=== PATIENT | male | born 2000 | race Caucasian/White ===

== ENCOUNTER 2019-04-21 22:25 | Emergency (ER) | payer OTHER, MEDICAID ==
[~2019-04-21] VITALS: Ht 193 cm; Wt 140.2 kg
[~2019-04-21 22:25] MED LIST: CEPH500C2 PO; NO MEDS
--- NOTE | 2019-04-21 23:39 | NUR ---
BIB MOTHER FOR C/O ABD PAIN (RUQ), NAUSEA, GREEN STOOL, - DIARRHEA, - DYSURIA, PT ON FLAGYL WHICH WAS PRESCRIBED BY HIS PCP FOR POSSIBLE INFX. FAMILY HX OF CHOLECYSTECTOMY IN MOM.
[2019-04-21] MEDS ORDERED: ONDANSETRON HCL/PF 4 MG/2 ML VIAL ONE (23:53)
[2019-04-21] MEDS ORDERED: MORPHINE SULFATE INJ 4 MG/ML DISP.SYRIN ONE (23:53)
[2019-04-22] MEDS ORDERED: MORPHINE SULFATE INJ 2 MG/ML DISP.SYRIN IV ONE
[2019-04-22] MEDS ORDERED: IV NS 0.9% 1,000 ML BAG IV ONE
[2019-04-22] MEDS ORDERED: ONDANSETRON HCL/PF 4 MG/2 ML VIAL IVP ONE
[2019-04-22 00:02] LABS: BASOPHILS % (AUTO) 0.5 % (0.0-2.0); EOSINOPHILS % (AUTO) 2.2 % (0.0-6.0); HEMATOCRIT 45 % (39-51); HEMOGLOBIN 15.1 g/dL (13.5-17.5); LYMPHOCYTES # (AUTO) 3.2 /CMM (0.8-4.8); LYMPHOCYTES % (AUTO) 38.5 % (20.0-44.0); MEAN CORPUSCULAR HGB CONC 33 g/dl (31.0-36.0); MEAN CORPUSCULAR VOLUME 82 fL (80-96); MONOCYTES # (AUTO) 0.6 /CMM (0.1-1.30); NEUTROPHILS # (AUTO) 4.4 /CMM (1.8-8.9); NEUTROPHILS % (AUTO) 51.8 % (43.0-81.0); PLATELET COUNT (AUTO) 314 /CMM (150-450); RED BLOOD CELL COUNT(AUTO) 5.57 MIL/uL (4.5-6.0); WHITE BLOOD COUNT (AUTO) 8.4 K/uL (4.3-11.0)
[2019-04-22 00:13] LABS: CALCIUM, SERUM 8.7 mg/dL (8.5-10.1); CREATININE 0.8 mg/dL (0.6-1.3); POTASSIUM 3.9 mmol/L (3.5-5.1)
[2019-04-22 00:26] LABS: ALBUMIN 3.5 g/dL (3.4-5.0); BILIRUBIN,DIRECT 0.1 mg/dL (0.0-0.2); BILIRUBIN,TOTAL 0.3 mg/dL (0.2-1.0); TOTAL PROTEIN, SERUM 7.2 g/dL (6.4-8.2)
[2019-04-22 00:44] LABS: APPEARANCE,URINE Clear (CLEAR); BILIRUBIN,URINE Negative (NEGATIVE); BLOOD, URINE Trace-intact Ery/uL (NEGATIVE); COLOR,URINE Yellow (YELLOW); KETONES,URINE Negative (NEGATIVE); LEUKOCYTE ESTERASE ,URINE Negative (NEGATIVE); NITRITE, URINE Negative (NEGATIVE); PROTEIN,URINE Negative (NEGATIVE); UGLUCOSE Negative (NEGATIVE); UROBILINOGEN,URINE 0.2 EU/dL (0.2)
[2019-04-22 01:06] LABS: BACTERIA,URINE Rare /HPF (None Seen); SQUAMOUS EPITHELIAL CELL,UR Rare /HPF (None Seen); WBC,URINE 0-2 /HPF (0-3)
--- NOTE | 2019-04-22 01:37 | NUR ---
IV removed. Catheter intact and site benign. Pressure and 4x4 applied to site. No bleeding noted. Patient discharged to home in stable condition. Rx and Written and verbal after care instructions given.Patient verbalizes understanding of instruction. MOTHER WILL DRIVE HIM BACK HOME
[2019-04-22 01:38] VITALS: BP 141/72
== END 2019-04-22 01:39 | disposition home or self-care (01) ==
LOC: ER 22:35
DX: R10.11 Right upper quadrant pain (principal); R11.0 Nausea
CPT/HCPCS: 36415; 80048; 80076; 81001; 83690; 85025; 87086; 96374; 96375; 99283; J2270; J2405; J7030; 81000-TC

== ENCOUNTER 2020-06-02 23:02 | Emergency (ER) | payer MEDICAID, OTHER ==
[~2020-06-02] VITALS: Ht 193 cm; Wt 140.2 kg
[2020-06-02 23:41] LABS: BASOPHILS # (AUTO) 0.1 /CMM (0.0-0.2); BASOPHILS % (AUTO) 0.5 % (0.0-2.0); EOSINOPHILS % (AUTO) 1.4 % (0.0-6.0); HEMATOCRIT 46 % (39-51); HEMOGLOBIN 14.9 g/dL (13.5-17.5); LYMPHOCYTES # (AUTO) 2.9 /CMM (0.8-4.8); LYMPHOCYTES % (AUTO) 23.8 % (20.0-44.0); MEAN CORPUSCULAR HGB CONC 33 g/dl (31.0-36.0); MEAN CORPUSCULAR VOLUME 84 fL (80-96); MONOCYTES # (AUTO) 0.7 /CMM (0.1-1.30); MONOCYTES % (AUTO) 6.1 % (2.0-12.0); NEUTROPHILS # (AUTO) 8.3 /CMM (1.8-8.9); NEUTROPHILS % (AUTO) 68.2 % (43.0-81.0); PLATELET COUNT (AUTO) 325 /CMM (150-450); RED BLOOD CELL COUNT(AUTO) 5.42 MIL/uL (4.5-6.0); WHITE BLOOD COUNT (AUTO) 12.1 K/uL (4.3-11.0)
[2020-06-02 23:41] LABS: APPEARANCE,URINE CLEAR (CLEAR); BILIRUBIN,URINE NEGATIVE (NEGATIVE); BLOOD, URINE NEGATIVE Ery/uL (NEGATIVE); COLOR,URINE YELLOW (YELLOW); KETONES,URINE NEGATIVE (NEGATIVE); LEUKOCYTE ESTERASE ,URINE NEGATIVE (NEGATIVE); NITRITE, URINE NEGATIVE (NEGATIVE); PROTEIN,URINE 30 mg/dl (NEGATIVE); UGLUCOSE NEGATIVE (NEGATIVE); UROBILINOGEN,URINE 0.2 EU/dL (0.2)
--- NOTE | 2020-06-02 23:49 | NUR ---
PT AAOX4. AMBULATORY WITH STEADY GAIT. BIBSELF C/O LOWER MID ABD PAIN X 2D, SHARP PAIN. PREVIOUSLY CONSTIPTED, TOOK FIBER. PLACED IN BED 3 ON MONITOR AND PULSE OX. VSS.
[2020-06-02 23:55] LABS: ALBUMIN 3.4 g/dL (3.4-5.0); BILIRUBIN,DIRECT 0.1 mg/dL (0.0-0.2); BILIRUBIN,TOTAL 0.2 mg/dL (0.2-1.0); CALCIUM, SERUM 8.8 mg/dL (8.5-10.1); CREATININE 0.9 mg/dL (0.6-1.3); POTASSIUM 4.7 mmol/L (3.5-5.1); TOTAL PROTEIN, SERUM 7.4 g/dL (6.4-8.2)
[2020-06-03 00:05] LABS: BACTERIA,URINE Few /HPF (None Seen); MUCUS,URINE Few /LPF (None Seen); RBC,URINE 0-2 /HPF (0-2); SPERM,URINE Rare /HPF (None Seen); SQUAMOUS EPITHELIAL CELL,UR Rare /HPF (None Seen); WBC,URINE 0-2 /HPF (0-3)
--- NOTE | 2020-06-03 01:12 | NUR ---
US AT BEDSIDE
--- NOTE | 2020-06-03 01:37 | NUR ---
Patient discharged to home in stable condition. Written and verbal after care instructions given. Patient verbalizes understanding of instruction.
[2020-06-03 02:53] VITALS: BP 131/71
== END 2020-06-03 01:58 | disposition home or self-care (01) ==
LOC: ER 23:02
DX: N30.90 Cystitis, unspecified without hematuria (principal); J18.9 Pneumonia, unspecified organism; E66.01 Morbid (severe) obesity due to excess calories; Z68.37 Body mass index [BMI] 37.0-37.9, adult; Z79.899 Other long term (current) drug therapy
CPT/HCPCS: 36415; 71045-TC; 76856-TC; 76870-TC; 80048-TC; 80076-TC; 81000-TC; 83690-TC; 85025-TC

== ENCOUNTER 2020-07-23 03:35 | Emergency (ER) | payer MEDICAID ==
[~2020-07-23] VITALS: Ht 193 cm; Wt 133.8 kg
[2020-07-23 03:35] VITALS: BP 147/91
[2020-07-23] MEDS ORDERED: ONDANSETRON 4 MG TAB.RAPDIS ONE (04:11)
[2020-07-23] MEDS ORDERED: CYCLOBENZAPRINE 10 MG TABLET ONE (04:11)
[2020-07-23] MEDS ORDERED: HYDROCODONE/APAP 10/325MG TABLET ONE (04:11)
--- NOTE | 2020-07-23 04:20 | NUR ---
PICKED UP BY MOTHER.
[2020-07-23] MEDS ORDERED: HYDROCODONE/APAP 10/325MG TABLET PO ONE (04:30)
[2020-07-23] MEDS ORDERED: ONDANSETRON 4 MG TAB.RAPDIS SL ONE (04:30)
[2020-07-23] MEDS ORDERED: CYCLOBENZAPRINE 10 MG TABLET PO ONE (04:30)
== END 2020-07-23 04:20 | disposition home or self-care (01) ==
LOC: ER 03:38
DX: M54.5 Low back pain (principal)
CPT/HCPCS: 99284; Q0162

== ENCOUNTER 2021-02-02 18:31 | Emergency (ER) | payer MEDICAID ==
[~2021-02-02] VITALS: Ht 193 cm; Wt 95.3 kg
--- NOTE | 2021-02-02 18:50 | NUR ---
THE PATIENT BIBS FOR C/O ON & OFF ABDOMINAL CRAMPING AND BLOOD IN STOOL X 1 YEAR. RATES PAIN 5/10. ABDOMEN SOFT AND NON-DISTENDED. RESPIRATION REGULAR AND UNLABORED. WILL CONTINUE TO MONITOR THE PATIENT.
[2021-02-02 18:55] VITALS: BP 164/109
[2021-02-02] MEDS ORDERED: SENN-18 PO (19:12)
[2021-02-02] MEDS ORDERED: HYDR25SU33 RC (19:12)
--- NOTE | 2021-02-02 19:24 | NUR ---
Patient discharged to home in stable condition. Written and verbal after care instructions given. Patient verbalizes understanding of instruction and RX. Pt ambulated out of ED. VSS.
== END 2021-02-02 19:25 | disposition home or self-care (01) ==
LOC: ER 18:36
DX: K59.00 Constipation, unspecified (principal); K64.4 Residual hemorrhoidal skin tags; F10.10 Alcohol abuse, uncomplicated; F17.200 Nicotine dependence, unspecified, uncomplicated; Y90.9 Presence of alcohol in blood, level not specified; Z79.899 Other long term (current) drug therapy

== ENCOUNTER 2021-04-01 19:57 | Emergency (ER) | payer MEDICAID ==
[~2021-04-01] VITALS: Ht 193 cm; Wt 113.4 kg
[~2021-04-01 19:57] MED LIST changes: +HYDR25SU33 RC; +SENN-18 PO
--- NOTE | 2021-04-01 20:15 | NUR ---
PATIENT BIBSELF C/O RIGHT FLANK PAIN X3 DAYS. PATIENT IS A/O X 4, RR EVEN AND UNLABORED, NO SIGNS OF SOB. PATIENT CONNECTED TO CONTACT LENS FITTER AND POX.
[2021-04-01 20:20] LABS: BILIRUBIN,URINE Negative (NEGATIVE); COLOR,URINE YELLOW (YELLOW); LEUKOCYTE ESTERASE ,URINE Negative (NEGATIVE); NITRITE, URINE Negative (NEGATIVE); PH,URINE 6.5 (5.0-8.0); PROTEIN,URINE Negative (NEGATIVE); UGLUCOSE Negative (NEGATIVE); UROBILINOGEN,URINE 0.2 EU/dL (0.2)
[2021-04-01 20:26] LABS: BASOPHILS % (AUTO) 0.5 % (0.0-2.0); EOSINOPHILS % (AUTO) 1.8 % (0.0-6.0); HEMATOCRIT 43 % (39-51); HEMOGLOBIN 14.3 g/dL (13.5-17.5); LYMPHOCYTES # (AUTO) 3.1 K/uL (0.8-4.8); LYMPHOCYTES % (AUTO) 37.7 % (20.0-44.0); MEAN CORPUSCULAR HGB CONC 33 g/dl (31.0-36.0); MEAN CORPUSCULAR VOLUME 86 fL (80-96); MONOCYTES # (AUTO) 0.6 K/uL (0.1-1.30); MONOCYTES % (AUTO) 6.9 % (2.0-12.0); NEUTROPHILS # (AUTO) 4.4 K/uL (1.8-8.9); NEUTROPHILS % (AUTO) 53.1 % (43.0-81.0); PLATELET COUNT (AUTO) 269 K/uL (150-450); RED BLOOD CELL COUNT(AUTO) 4.95 MIL/uL (4.5-6.0); WHITE BLOOD COUNT (AUTO) 8.3 K/uL (4.3-11.0)
[2021-04-01 20:42] LABS: ALBUMIN 3.7 g/dL (3.4-5.0); BILIRUBIN,DIRECT 0.1 mg/dL (0.0-0.2); BILIRUBIN,TOTAL 0.2 mg/dL (0.2-1.0); CALCIUM, SERUM 8.8 mg/dL (8.5-10.1); CREATININE 0.9 mg/dL (0.6-1.3)
[2021-04-01] MEDS ORDERED: ACET-907 PO (20:48)
[2021-04-01] MEDS ORDERED: METH-649 GT (20:48)
--- NOTE | 2021-04-01 20:55 | NUR ---
Patient discharged to home in stable condition. Written and verbal after care instructions given. Patient verbalizes understanding of instruction.
[2021-04-01 21:12] VITALS: BP 134/76
== END 2021-04-01 21:13 | disposition home or self-care (01) ==
LOC: ER 19:57
DX: M54.5 Low back pain (principal)
CPT/HCPCS: 36415; 80048-TC; 80076-TC; 83690-TC; 85025-TC; 87086-TC

== ENCOUNTER 2021-06-21 06:44 | Emergency (ER) | payer MEDICAID ==
[~2021-06-21] VITALS: Ht 193 cm; Wt 111.1 kg
[~2021-06-21 06:44] MED LIST changes: +ACET-907 PO; +METH-649 GT
--- NOTE | 2021-06-21 07:00 | NUR ---
pt bibself c/o L testicle pain. Pt aaox4 breathing evenly and unlabored. Pt denies any trauma to the area. Pt denies any painful or difficulty with urination. pt states "its sharp and feels like things are moving around" pt attached to monitor and pox.MD at bedside Pt given blanket and call light within reach
[2021-06-21] MEDS ORDERED: KETOROLAC TROMETHAMINE INJ 30 MG/ML VIAL ONE (07:08)
[2021-06-21] MEDS ORDERED: KETOROLAC TROMETHAMINE INJ 30 MG/ML VIAL IM ONE (07:30)
--- NOTE | 2021-06-21 07:49 | NUR ---
US AT BEDSIDE
[2021-06-21 09:02] VITALS: BP 129/73
--- NOTE | 2021-06-21 09:02 | NUR ---
Patient discharged to home in stable condition. Written and verbal after care instructions given. Patient verbalizes understanding of instruction.
== END 2021-06-21 09:02 | disposition home or self-care (01) ==
LOC: ER 06:44
DX: N50.812 Left testicular pain (principal); F10.10 Alcohol abuse, uncomplicated; F17.200 Nicotine dependence, unspecified, uncomplicated; Y90.9 Presence of alcohol in blood, level not specified; Z79.899 Other long term (current) drug therapy
CPT/HCPCS: 76870; 96372; 99284; J1885

== ENCOUNTER 2021-09-19 02:44 | Emergency (ER) | payer MEDICAID ==
[~2021-09-19] VITALS: Ht 193 cm; Wt 113.4 kg
--- NOTE | 2021-09-19 03:29 | NUR ---
CALLED TO TRIAGE NO ANSWER
[2021-09-19 03:41] VITALS: BP 129/73
[2021-09-19] MEDS ORDERED: MAGNESIUM CITRATE 296 ML BOTTLE ONE (03:47)
[2021-09-19] MEDS ORDERED: MAGNESIUM CITRATE 296 ML BOTTLE PO ONE (04:00)
[2021-09-19] MEDS ORDERED: PEG 3350/NA SULF,BICARB,CL/KCL 4,000 ML BOTTLE PO ONE (04:00)
== END 2021-09-19 04:10 | disposition home or self-care (01) ==
LOC: ER 02:46
DX: K59.00 Constipation, unspecified (principal); F17.290 Nicotine dependence, other tobacco product, uncomplicated; Z79.899 Other long term (current) drug therapy

== ENCOUNTER 2021-09-29 21:08 | Emergency (ER) | payer MEDICAID ==
--- NOTE | 2021-09-29 23:00 | NUR ---
CALLED FOR TRIAGE NOT IN WAITING ROOM.
--- NOTE | 2021-09-30 00:10 | NUR ---
CALLED FOR TRIAGE NOT IN WAITING ROOM.
--- NOTE | 2021-09-30 01:09 | NUR ---
PATIENT LEFT WITHOUT BEING SEEN.
== END 2021-09-30 01:09 | disposition left against medical advice (07) ==
LOC: ER 21:15
DX: Z53.21 Procedure and treatment not carried out due to patient leaving prior to being seen by health care provider (principal)

== ENCOUNTER 2021-11-05 00:43 | Emergency (ER) | payer MEDICAID ==
[~2021-11-05] VITALS: Ht 190.5 cm; Wt 111.1 kg
--- NOTE | 2021-11-05 01:27 | NUR ---
BIBS C/O LEFT SIDED TESTICULAR PAIN X1DAY. TYLENOL TAKEN EGG CASER. PATIENT ALERT AND ORIENTED X3. AMBULATORY WITH NON LABORED BREATHING IN A GOWN IN BED 07
--- NOTE | 2021-11-05 01:48 | NUR ---
us at bedside
[2021-11-05 03:00] VITALS: BP 130/69
[2021-11-05 03:19] LABS: BILIRUBIN,URINE NEGATIVE (NEGATIVE); COLOR,URINE YELLOW (YELLOW); LEUKOCYTE ESTERASE ,URINE NEGATIVE (NEGATIVE); NITRITE, URINE NEGATIVE (NEGATIVE); PROTEIN,URINE NEGATIVE (NEGATIVE); UGLUCOSE NEGATIVE (NEGATIVE); UROBILINOGEN,URINE 0.2 EU/dL (0.2)
--- NOTE | 2021-11-05 03:57 | NUR ---
Patient discharged to home in stable condition. Written and verbal after care instructions given. Patient verbalizes understanding of instruction.
== END 2021-11-05 03:58 | disposition home or self-care (01) ==
LOC: ER 00:49
DX: N43.3 Hydrocele, unspecified (principal); F17.200 Nicotine dependence, unspecified, uncomplicated; Z79.891 Long term (current) use of opiate analgesic; Z79.52 Long term (current) use of systemic steroids; Z79.899 Other long term (current) drug therapy
CPT/HCPCS: 76870-TC

== ENCOUNTER 2022-07-12 23:26 | Emergency (ER) | payer MEDICAID ==
[~2022-07-12] VITALS: Ht 190.5 cm; Wt 117.9 kg
--- NOTE | 2022-07-12 23:58 | NUR ---
CHASITY Gaytan.O R ATRUMATIC RIB PAIN SINCE 11AM. TOOK MOTRIN THROUGH THE DAY BUT NO HELP. HX OF SMOKING CIGARETTES AND MARIJUANA. PLACED ON MONITOR AND V/S WNL.
--- NOTE | 2022-07-12 23:59 | NUR ---
EMT AT PT'S BEDSIDE FOR EKG
[2022-07-13] MEDS ORDERED: KETOROLAC TROMETHAMINE INJ 30 MG/ML VIAL ONE (00:53)
[2022-07-13] MEDS ORDERED: KETOROLAC TROMETHAMINE INJ 60 MG/2 ML VIAL IM ONE (01:00)
[2022-07-13 01:18] VITALS: BP 148/81
--- NOTE | 2022-07-13 01:18 | NUR ---
Patient discharged to home in stable condition. Written and verbal after care instructions given. Patient verbalizes understanding of instruction.pt ambulatory with a steady gait
== END 2022-07-13 01:20 | disposition home or self-care (01) ==
LOC: ER 23:28
DX: R07.89 Other chest pain (principal); I10 Essential (primary) hypertension; F17.200 Nicotine dependence, unspecified, uncomplicated; Z79.899 Other long term (current) drug therapy
CPT/HCPCS: 99283; 71045; 93005; 96372; J1885

== ENCOUNTER 2022-10-30 02:15 | Emergency (ER) | payer MEDICAID ==
[~2022-10-30] VITALS: Ht 193 cm; Wt 111.1 kg
--- NOTE | 2022-10-30 02:29 | NUR ---
BIBS C/O R TESTICULAR PAIN AND PAINFUL URINATION X 3 DAYS -FEVER -N/V DENIES TRAUMA
--- NOTE | 2022-10-30 02:34 | NUR ---
URINE COLLECTED AND SENT TO LAB
[2022-10-30 03:38] LABS: BILIRUBIN,URINE NEGATIVE (NEGATIVE); COLOR,URINE YELLOW (YELLOW); LEUKOCYTE ESTERASE ,URINE NEGATIVE (NEGATIVE); NITRITE, URINE NEGATIVE (NEGATIVE); PH,URINE 6.5 (5.0-8.0); PROTEIN,URINE NEGATIVE (NEGATIVE); UGLUCOSE NEGATIVE (NEGATIVE); UROBILINOGEN,URINE 0.2 EU/dL (0.2)
[2022-10-30] MEDS ORDERED: CIPR-262 PO (06:47)
--- NOTE | 2022-10-30 06:49 | NUR ---
Patient discharged to home in stable condition. Written and verbal after care instructions given. Patient verbalizes understanding of instruction.
[2022-10-30 07:02] VITALS: BP 127/75
== END 2022-10-30 07:04 | disposition home or self-care (01) ==
LOC: ER 02:16
DX: N50.812 Left testicular pain (principal); N50.811 Right testicular pain; I10 Essential (primary) hypertension; F17.200 Nicotine dependence, unspecified, uncomplicated; Z79.899 Other long term (current) drug therapy
CPT/HCPCS: 76870-TC

== ENCOUNTER 2023-03-04 02:06 | Emergency (ER) | payer OTHER, BC ==
[~2023-03-04] VITALS: Ht 190.5 cm; Wt 127.0 kg
[~2023-03-04 02:06] MED LIST changes: +CIPR-262 PO
--- NOTE | 2023-03-04 02:30 | NUR ---
BIBSELF C/O CHEST PAIN STARTED AT 0100, TROUBLE BREATHING, CHEST TIGHTNESS. PAIN 10/10 AT THE TIME, NOW SEEMS TO HAVE RESOLVED PER PATIENT. PT AAOX4, AMBULATORY, IN NAD. PLACED IN BED, VITALS CHECKED.
[2023-03-04] MEDS ORDERED: ACETAMINOPHEN 325 MG TABLET PO ONE (03:00)
[2023-03-04] MEDS ORDERED: ACETAMINOPHEN ES 500 MG TABLET ONE (03:09)
[2023-03-04 03:23] VITALS: BP 128/68
== END 2023-03-04 03:23 | disposition home or self-care (01) ==
LOC: ER 02:16
DX: R07.89 Other chest pain (principal); F17.200 Nicotine dependence, unspecified, uncomplicated; Z60.2 Problems related to living alone; Z79.899 Other long term (current) drug therapy
CPT/HCPCS: 71045-TC

== ENCOUNTER 2023-05-17 03:16 | Emergency (ER) | payer OTHER, BC ==
[~2023-05-17] VITALS: Ht 193 cm; Wt 113.4 kg
[2023-05-17 04:10] LABS: BASOPHILS % (AUTO) 0.5 % (0.0-2.0); EOSINOPHILS # (AUTO) 0.1 K/uL (0.0-0.7); EOSINOPHILS % (AUTO) 1.5 % (0.0-6.0); HEMATOCRIT 45 % (39-51); HEMOGLOBIN 14.8 g/dL (13.5-17.5); LYMPHOCYTES # (AUTO) 3.2 K/uL (0.8-4.8); LYMPHOCYTES % (AUTO) 39.7 % (20.0-44.0); MEAN CORPUSCULAR HEMOGLOBIN 28 PG (26.0-33.0); MEAN CORPUSCULAR HGB CONC 33 g/dl (31.0-36.0); MEAN CORPUSCULAR VOLUME 85 fL (80-96); MONOCYTES # (AUTO) 0.6 K/uL (0.1-1.30); MONOCYTES % (AUTO) 6.9 % (2.0-12.0); NEUTROPHILS # (AUTO) 4.2 K/uL (1.8-8.9); NEUTROPHILS % (AUTO) 51.4 % (43.0-81.0); PLATELET COUNT (AUTO) 256 K/uL (150-450); RED BLOOD CELL COUNT(AUTO) 5.25 MIL/uL (4.5-6.0); RED CELL DISTRIBUTION WIDTH 13.5 % (11.5-15.0); WHITE BLOOD COUNT (AUTO) 8.2 K/uL (4.3-11.0)
[2023-05-17 04:42] LABS: ALANINE AMINOTRANSFERASE 36 U/L (12-78); ALBUMIN 3.5 g/dL (3.4-5.0); ALKALINE PHOSPHATASE 104 U/L (46-116); ASPARTATE AMINOTRANSFERASE 15 U/L (15-37); BILIRUBIN,DIRECT 0.1 mg/dL (0.0-0.2); BILIRUBIN,TOTAL 0.2 mg/dL (0.2-1.0); CALCIUM, SERUM 9.2 mg/dL (8.5-10.1); CARBON DIOXIDE 29 mmol/L (21-32); CHLORIDE 105 mmol/L (98-107); CREATININE 0.9 mg/dL (0.6-1.3); GLUCOSE 99 mg/dL (74-106); POTASSIUM 3.9 mmol/L (3.5-5.1); SODIUM SERUM 140 mmol/L (136-145); TOTAL PROTEIN, SERUM 6.9 g/dL (6.4-8.2); UREA NITROGEN, BLOOD 12 mg/dL (7-18)
[2023-05-17 08:20] VITALS: BP 123/80; TEMP 98.7; O2SAT 97
== END 2023-05-17 08:21 | disposition home or self-care (01) ==
LOC: ER 03:17
DX: R07.89 Other chest pain (principal); R00.2 Palpitations
CPT/HCPCS: 36415; 71045-TC; 80048-TC; 80076-TC; 84484-TC; 85025-TC

== ENCOUNTER 2023-07-21 04:37 | Emergency (ER) | payer OTHER, MEDICAID ==
[~2023-07-21] VITALS: Ht 190.5 cm; Wt 127.0 kg
[2023-07-21 05:47] LABS: BASOPHILS # (AUTO) 0.1 K/uL (0.0-0.2); BASOPHILS % (AUTO) 0.6 % (0.0-2.0); EOSINOPHILS # (AUTO) 0.3 K/uL (0.0-0.7); EOSINOPHILS % (AUTO) 3.2 % (0.0-6.0); HEMATOCRIT 41 % (39-51); HEMOGLOBIN 13.8 g/dL (13.5-17.5); LYMPHOCYTES # (AUTO) 3.4 K/uL (0.8-4.8); LYMPHOCYTES % (AUTO) 37.3 % (20.0-44.0); MEAN CORPUSCULAR HEMOGLOBIN 29 PG (26.0-33.0); MEAN CORPUSCULAR HGB CONC 34 g/dl (31.0-36.0); MEAN CORPUSCULAR VOLUME 85 fL (80-96); MONOCYTES # (AUTO) 0.6 K/uL (0.1-1.30); MONOCYTES % (AUTO) 6.9 % (2.0-12.0); NEUTROPHILS # (AUTO) 4.7 K/uL (1.8-8.9); PLATELET COUNT (AUTO) 243 K/uL (150-450); RED BLOOD CELL COUNT(AUTO) 4.86 MIL/uL (4.5-6.0)
[2023-07-21 05:56] LABS: INR 1.1 (0.91-1.10); PARTIAL THROMBOPLASTIN TIME 29.6 SEC (24.3-34.3); PROTHROMBIN TIME 11.6 SECS (9.2-11.1)
[2023-07-21 06:00] LABS: ALANINE AMINOTRANSFERASE 33 U/L (12-78); ALBUMIN 3.5 g/dL (3.4-5.0); ALKALINE PHOSPHATASE 108 U/L (46-116); ASPARTATE AMINOTRANSFERASE 19 U/L (15-37); BILIRUBIN,TOTAL 0.2 mg/dL (0.2-1.0); CALCIUM, SERUM 9.1 mg/dL (8.5-10.1); CARBON DIOXIDE 27 mmol/L (21-32); CHLORIDE 102 mmol/L (98-107); CREATININE 0.8 mg/dL (0.6-1.3); GLUCOSE 83 mg/dL (74-106); POTASSIUM 3.9 mmol/L (3.5-5.1); SODIUM SERUM 139 mmol/L (136-145); TOTAL PROTEIN, SERUM 6.6 g/dL (6.4-8.2); UREA NITROGEN, BLOOD 16 mg/dL (7-18)
[2023-07-21] MEDS ORDERED: IBUP-1955 PO (09:16)
[2023-07-21] MEDS ORDERED: IBUPROFEN 600 MG TABLET PO ONE (09:30)
[2023-07-21] MEDS ORDERED: IBUPROFEN 600 MG TABLET ONE (09:42)
[2023-07-21 10:24] VITALS: BP 131/64; TEMP 98.1; O2SAT 100
== END 2023-07-21 10:25 | disposition home or self-care (01) ==
LOC: ER 04:38
DX: I31.9 Disease of pericardium, unspecified (principal); R00.2 Palpitations; R07.89 Other chest pain; Z79.899 Other long term (current) drug therapy
CPT/HCPCS: 36415; 71045-TC; 80048-TC; 80076-TC; 84484-TC; 85025-TC; 85730-TC

== ENCOUNTER 2023-10-15 02:14 | Emergency (ER) | payer OTHER, BC ==
[~2023-10-15] VITALS: Ht 188 cm; Wt 131.5 kg
[~2023-10-15 02:14] MED LIST changes: +IBUP-1955 PO
[2023-10-15 02:21] VITALS: BP 157/84; TEMP 97.8
[2023-10-15] MEDS ORDERED: KETO10TA2 PO (02:25)
[2023-10-15] MEDS ORDERED: KETOROLAC TROMETHAMINE INJ 60 MG/2 ML VIAL IM ONE ×2 (02:29→02:30)
[2023-10-15 02:43] VITALS: O2SAT 99
== END 2023-10-15 02:50 | disposition home or self-care (01) ==
LOC: ER 02:22
DX: R07.89 Other chest pain (principal)
CPT/HCPCS: J1885

== ENCOUNTER 2024-03-22 02:46 | Emergency (ER) | payer BC, OTHER ==
[~2024-03-22] VITALS: Ht 190.5 cm; Wt 135.2 kg
[~2024-03-22 02:46] MED LIST changes: +KETO10TA2 PO
[2024-03-22] MEDS ORDERED: ONDANSETRON HCL/PF 4 MG/2 ML VIAL ONE (03:17)
[2024-03-22] MEDS: IV NS 0.9% 1,000 ML BAG IV ONE (03:27)
[2024-03-22] MEDS: ONDANSETRON HCL/PF 4 MG/2 ML VIAL IVP ONE (03:28)
[2024-03-22 03:34] LABS: BASOPHILS # (AUTO) 0.1 K/uL (0.0-0.2); BASOPHILS % (AUTO) 0.7 % (0.0-2.0); EOSINOPHILS # (AUTO) 0.2 K/uL (0.0-0.7); EOSINOPHILS % (AUTO) 2.7 % (0.0-6.0); HEMATOCRIT 45 % (39-51); HEMOGLOBIN 15.3 g/dL (13.5-17.5); LYMPHOCYTES # (AUTO) 3.2 K/uL (0.8-4.8); LYMPHOCYTES % (AUTO) 41.1 % (20.0-44.0); MEAN CORPUSCULAR HEMOGLOBIN 29 PG (26.0-33.0); MEAN CORPUSCULAR HGB CONC 34 g/dl (31.0-36.0); MEAN CORPUSCULAR VOLUME 85 fL (80-96); MONOCYTES # (AUTO) 0.5 K/uL (0.1-1.30); MONOCYTES % (AUTO) 6.3 % (2.0-12.0); NEUTROPHILS # (AUTO) 3.9 K/uL (1.8-8.9); NEUTROPHILS % (AUTO) 49.2 % (43.0-81.0); PLATELET COUNT (AUTO) 248 K/uL (150-450); RED BLOOD CELL COUNT(AUTO) 5.35 MIL/uL (4.5-6.0); RED CELL DISTRIBUTION WIDTH 13.1 % (11.5-15.0); WHITE BLOOD COUNT (AUTO) 7.8 K/uL (4.3-11.0)
[2024-03-22 03:40] LABS: CALCIUM, SERUM 8.5 mg/dL (8.5-10.1); CREATININE 0.8 mg/dL (0.6-1.3); POTASSIUM 3.8 mmol/L (3.5-5.1)
[2024-03-22 03:41] LABS: APPEARANCE,URINE CLEAR (CLEAR); BILIRUBIN,URINE NEGATIVE (NEGATIVE); BLOOD, URINE NEGATIVE Ery/uL (NEGATIVE); COLOR,URINE YELLOW (YELLOW); KETONES,URINE TRACE mg/dL (NEGATIVE); LEUKOCYTE ESTERASE ,URINE NEGATIVE (NEGATIVE); NITRITE, URINE NEGATIVE (NEGATIVE); PROTEIN,URINE NEGATIVE (NEGATIVE); UGLUCOSE NEGATIVE (NEGATIVE); UROBILINOGEN,URINE 0.2 EU/dL (0.2)
[2024-03-22 03:46] LABS: ALBUMIN 2.9 g/dL (3.4-5.0); BILIRUBIN,DIRECT 0.1 mg/dL (0.0-0.2); BILIRUBIN,TOTAL 0.2 mg/dL (0.2-1.0); TOTAL PROTEIN, SERUM 6.7 g/dL (6.4-8.2)
[2024-03-22 03:47] LABS: INR 1.03 (0.91-1.10); PARTIAL THROMBOPLASTIN TIME 29.4 SEC (24.3-34.3); PROTHROMBIN TIME 10.9 SECS (9.2-11.1)
[2024-03-22] MEDS ORDERED: DOCU-141 PO (04:26)
[2024-03-22] MEDS ORDERED: POLY119P2 PO (04:26)
[2024-03-22 04:37] VITALS: BP 155/96; TEMP 98.2; O2SAT 99
[2024-03-22 04:46] LABS: ADD URINE CULTURE NO; BACTERIA,URINE Rare /HPF (None Seen); RBC,URINE NONE SEEN /HPF (0-2); SQUAMOUS EPITHELIAL CELL,UR None Seen /HPF (None Seen); WBC,URINE NONE SEEN /HPF (0-3)
== END 2024-03-22 04:38 | disposition home or self-care (01) ==
LOC: ER 02:47
DX: K59.00 Constipation, unspecified (principal); R11.0 Nausea; F12.10 Cannabis abuse, uncomplicated
CPT/HCPCS: 99284; 74176; 96360; 85025; 80048; 83690; 80076; 81001; 36415; 85730; J7030; J2405

== ENCOUNTER 2024-05-16 02:50 | Emergency (ER) | payer MEDICAID ==
[~2024-05-16] VITALS: Ht 190.5 cm; Wt 127.0 kg
[~2024-05-16 02:50] MED LIST changes: +DOCU-141 PO; +POLY119P2 PO
--- NOTE | 2024-05-16 03:56 | NUR ---
BIBSELF FROM HOME C/O L RIBCAGE PAIN X2 DAYS. PAIN INCREASES UPON INSPIRATION.
--- NOTE | 2024-05-16 04:04 | NUR ---
[facility]
--- NOTE | 2024-05-16 05:00 | NUR ---
Patient discharged to home in stable condition. Written and verbal after care instructions given. Patient verbalizes understanding of instruction.
[2024-05-16 05:01] VITALS: BP 132/82; TEMP 98; O2SAT 99
== END 2024-05-16 05:01 | disposition home or self-care (01) ==
LOC: ER 02:54
DX: R07.81 Pleurodynia (principal); F12.10 Cannabis abuse, uncomplicated; Z86.79 Personal history of other diseases of the circulatory system
CPT/HCPCS: 71100-TC

== ENCOUNTER 2024-07-15 00:37 | Emergency (ER) | payer MEDICAID ==
[~2024-07-15] VITALS: Ht 190.5 cm; Wt 129.3 kg
[2024-07-15 01:20] LABS: BASOPHILS # (AUTO) 0.1 K/uL (0.0-0.2); BASOPHILS % (AUTO) 0.6 % (0.0-2.0); EOSINOPHILS # (AUTO) 0.2 K/uL (0.0-0.7); EOSINOPHILS % (AUTO) 2.3 % (0.0-6.0); HEMATOCRIT 43 % (39-51); HEMOGLOBIN 14.6 g/dL (13.5-17.5); LYMPHOCYTES # (AUTO) 3.3 K/uL (0.8-4.8); LYMPHOCYTES % (AUTO) 35.9 % (20.0-44.0); MEAN CORPUSCULAR HEMOGLOBIN 28 PG (26.0-33.0); MEAN CORPUSCULAR HGB CONC 34 g/dl (31.0-36.0); MEAN CORPUSCULAR VOLUME 84 fL (80-96); MONOCYTES # (AUTO) 0.7 K/uL (0.1-1.30); MONOCYTES % (AUTO) 7.6 % (2.0-12.0); NEUTROPHILS % (AUTO) 53.6 % (43.0-81.0); PLATELET COUNT (AUTO) 250 K/uL (150-450); RED BLOOD CELL COUNT(AUTO) 5.15 MIL/uL (4.5-6.0); RED CELL DISTRIBUTION WIDTH 13.1 % (11.5-15.0); WHITE BLOOD COUNT (AUTO) 9.3 K/uL (4.3-11.0)
[2024-07-15] MEDS: KETOROLAC TROMETHAMINE 15 MG/ML VIAL IV ONE (01:28)
[2024-07-15 01:29] LABS: CALCIUM, SERUM 8.5 mg/dL (8.5-10.1); CARBON DIOXIDE 26 mmol/L (21-32); CHLORIDE 102 mmol/L (98-107); CREATININE 0.8 mg/dL (0.6-1.3); GLUCOSE 126 mg/dL (74-106); POTASSIUM 3.8 mmol/L (3.5-5.1); SODIUM SERUM 136 mmol/L (136-145); UREA NITROGEN, BLOOD 10 mg/dL (7-18)
[2024-07-15 01:34] LABS: ALANINE AMINOTRANSFERASE 31 U/L (12-78); ALBUMIN 3.2 g/dL (3.4-5.0); ALKALINE PHOSPHATASE 95 U/L (46-116); ASPARTATE AMINOTRANSFERASE 17 U/L (15-37); BILIRUBIN,DIRECT 0.1 mg/dL (0.0-0.2); BILIRUBIN,TOTAL 0.2 mg/dL (0.2-1.0); TOTAL PROTEIN, SERUM 6.6 g/dL (6.4-8.2)
[2024-07-15 04:27] VITALS: BP 117/81; TEMP 97.8; O2SAT 99
== END 2024-07-15 04:28 | disposition home or self-care (01) ==
LOC: ER 00:40
DX: R00.2 Palpitations (principal); R07.9 Chest pain, unspecified; F41.9 Anxiety disorder, unspecified; F12.10 Cannabis abuse, uncomplicated; Z79.1 Long term (current) use of non-steroidal anti-inflammatories (NSAID); Z86.79 Personal history of other diseases of the circulatory system
CPT/HCPCS: 36415; 71045-TC; 80048-TC; 80076-TC; 84484-TC; 85025-TC